=== PATIENT | female | born 1955 | race Caucasian/White ===

== ENCOUNTER → 2018-03-20 13:05 | Outpatient (CLI) | payer BC, SELFPAY ==
--- NOTE | 2018-03-20 15:44 | PFTCOMP ---
COMPLETE PULMONARY FUNCTION TEST INTERPRETATION Brief HPI: Patient is a 62 year old female, currently under the care of Dr. Alamo, who presents to [facility] for complete pulmonary function tests secondary to diagnosis of dyspnea. Respiratory therapist reports good effort and reproducible results. Interpretation: Forced expiration spirometry shows no large airways obstructive ventilatory defect with an FEV1 of 128% predicted. There is no significant bronchodilator response by ATS criteria. Spirograms are of good quality and plateau slowly, indicating slowly emptying areas of the lungs. The respiratory flow volume loop shows decreased expiratory flow rates at high lung volumes consistent with small airways obstruction. Lung volumes by body plethysmography show an elevated total lung capacity at 6.36 L, 136% predicted. All other lung volumes are increased symmetrically. Diffusion capacity by carbon monoxide is normal at 91% predicted. The airway resistance is normal. No previous pulmonary function tests were available for review. Impression: These pulmonary function tests are grossly within normal limits. There is some stigmata of possible small airways disease. Consider bronchoprovocation if asthma is a consideration.
== END ==
PROVIDERS: Family Provider Family Medicine; PCP Family Medicine; Referring Provider Nurse Practitioner Acute Care; Visit Provider Nurse Practitioner Acute Care
DX: R06.02 Shortness of breath (principal)
CPT/HCPCS: 94060; 94726; 94729

== ENCOUNTER → 2018-12-24 15:41 | Outpatient (CLI) | payer BC, SELFPAY ==
--- NOTE | 2018-12-24 15:46 | CT_ITS ---
STUDY: CT CHEST WITH CONTRAST REASON FOR EXAM: Female, 63 years old. Mediastinal mass. RADIATION DOSAGE (If Supplied By Facility): CTDIvol = ( 10.0 ) mGy, DLP = ( 267.26 ) mGycm TECHNIQUE: Transaxial imaging was performed following intravenous administration of 100 ml of Isovue 300 contrast material. Coronal and sagittal reformatted images were created. Individualized dose optimization techniques were used for this CT. COMPARISON: None FINDINGS: There are no pulmonary infiltrates or pleural effusions. There is scarring noted in the lung apices. There is no pneumothorax. The heart and pericardium are within normal limits. There is no mediastinal mass. There is no thoracic lymphadenopathy. There is no evidence of thoracic aortic aneurysm. Images through the upper abdomen demonstrate cholecystectomy clips. There are no destructive osseous lesions. CT/Chest WITH Contrast IMPRESSION: No mediastinal mass. No thoracic lymphadenopathy. Biapical scarring. Otherwise, clear lungs. Electronically Signed: Jonh Leung, at 19:16 EDT Tel , Service support ,
[2018-12-24 15:56] LABS: CREATININE FINGERSTICK < 0.6 mg/dL (0.55-1.02)
== END ==
PROVIDERS: Family Provider Family Medicine; PCP Family Medicine; Referring Provider Thoracic Surgery (Cardiothoracic Vascular Surgery); Visit Provider Thoracic Surgery (Cardiothoracic Vascular Surgery)
DX: J98.59 Other diseases of mediastinum, not elsewhere classified (principal)
CPT/HCPCS: 71260; Q9967

== ENCOUNTER → 2021-02-26 12:25 | Outpatient (CLI) | payer BC, SELFPAY ==
--- NOTE | 2021-02-26 13:00 | MRI_ITS ---
STUDY: MRI LEFT REARFOOT WITHOUT CONTRAST REASON FOR EXAM: Pain at the plantar aspect of the left calcaneus since July, no specific injury, previous surgery. TECHNIQUE: Standardized fat and water weighted pulse sequences were obtained in all 3 orthogonal planes. COMPARISON: None. FINDINGS: There is postoperative metallic artifact at the lateral and plantar aspects of the posterior tuberosity of the calcaneus. Normal posterior tibialis tendon. Normal flexor digitorum longus tendon. Normal flexor hallucis longus tendon. Normal visualized peroneus longus and brevis tendons. Normal tibialis anterior tendon. Normal extensor hallucis longus tendon. Normal extensor digitorum longus tendons. Normal Achilles tendon and teno-osseous insertion. Normal visualized portion of the central cord of the plantar fascia, the lateral cord and portions of the central cord are obscured by metallic artifact. Although there is no demonstrated lesion in the visualized portion of the calcaneus, the entirety calcaneus cannot be evaluated secondary to metallic artifact. Normal visualized intrinsic muscles of the rearfoot. Normal distal tibiofibular syndesmotic ligamentous complex. There is mild thickening of the anterior talofibular ligament (T2 axial image 20) consistent with scarring. The calcaneofibular ligament is obscured by metallic artifact. Normal subtalar ligaments and sinus tarsi. Normal deltoid ligamentous complexes. Normal plantar calcaneonavicular (spring) ligament. Normal tibiotalar articulation. Normal talar dome. Normal subtalar articulations. There is a small os trigonum. Normal talonavicular articulation. Normal calcaneocuboid articulation. Normal navicular-cuneiform articulations. MRI/Lower Ext/No Jt/w/o IMPRESSION: Limited evaluation of the calcaneus and plantar fascia secondary to postoperative metallic artifact, although there is no demonstrated lesion of the visualized calcaneus or abnormality of the visualized central cord of the plantar fascia. Mild thickening of the anterior talofibular ligament consistent with scarring. Electronically Signed: Peter Mendoza MD at 9:39 EDT Tel , Service support ,
== END ==
PROVIDERS: PCP Family Medicine; Referring Provider Podiatrist; Visit Provider Podiatrist
DX: M72.2 Plantar fascial fibromatosis (principal); M89.8X7 Other specified disorders of bone, ankle and foot
CPT/HCPCS: 73718

== ENCOUNTER → 2021-03-08 06:56 | Outpatient (CLI) | payer BC, SELFPAY ==
--- NOTE | 2021-03-08 07:04 | CT_ITS ---
INDICATION: PLANTAR FASCITIS EXAMINATION: CT BONE - CT Lower Extremity W/O Contrast Injection TECHNIQUE: Helically acquired images were obtained of the left foot. 2-D reformats were performed by the technologist. A radiation dose optimization technique was used for this scan. IV Contrast dosage and agent: None. COMPARISON: MRI of the foot obtained 02/26/2021. FINDINGS: The ankle mortise is well-maintained, the talar dome is unremarkable, no evidence of cortical irregularity and lucency to suggest a fracture in the malleoli. Unremarkable bone alignment is visualized, unremarkable alignment of the tarsal and metatarsal bones, mild degenerative bone changes with narrowing of the joint spaces is seen. Degenerative changes visualized in the heads of the metatarsal bones and in the interphalangeal joints but no evidence of displaced fracture is seen, no evidence of erosive bony changes is visualized. A 2 cm metallic foreign body is visualized within the lateral aspect of the calcaneus bone. A subtle lucency is seen in the mid calcaneus bone that could represent a prior fracture plane suboptimally evaluated on these images, note is made that there was no evidence of T2 prolongation on the prior MRI within the calcaneus bone to suggest acuity. Subtle scattered lucencies visualized within the anterior aspect of the calcaneus bone suggestive of subchondral cysts/degenerative changes. No evidence of periosteal reaction is visualized. Ligamentous thickening visualized that was better delineated on the MRI would recommend correlation with MRI report however there is a focal 0.4 mm calcification visualized in the medial aspect of the midfoot best visualized on coronal series 602 image 40 and axial series 3 image 34. Subtle inferior calcaneal spur and subtle osteophyte in the superior calcaneus along the anterior aspect of the Achilles tendon insertion could represent that tendon enthesopathy is seen. Visualized on sagittal series 601 image 24. Stranding and thickening of the subcutaneous soft tissues surrounding the hindfoot and along the posterior aspect of the plantar fascia are visualized best seen on sagittal series 601 image 29. No evidence of bone mass is visualized. No evidence of soft tissue mass is visualized. CT/Extremity Lower without Contra IMPRESSION: Subcutaneous soft tissue stranding and thickening visualized surrounding the hindfoot most prominent along the inferior aspect, posterior plantar fascia. Radiopaque foreign body visualized within the lateral aspect of the calcaneus bone would recommend clinical correlation with prior surgery, subtle lucency traversing the calcaneal bone that could represent a prior/remote fracture plane. Scattered lucencies within the calcaneus bone suggestive of for degenerative changes, no evidence of osteomyelitis is seen. No evidence of bone or soft tissue mass is seen. Degenerative changes seen. Subtle inferior calcaneal spur is seen. Electronically Signed: Dion Nvaarrete MD at 9:29 EDT Tel , Service support ,
== END ==
PROVIDERS: PCP Family Medicine; Referring Provider Podiatrist; Visit Provider Podiatrist
DX: M72.2 Plantar fascial fibromatosis (principal); S90.852A Superficial foreign body, left foot, initial encounter
CPT/HCPCS: 73700